=== PATIENT | male | born 1945 | race Caucasian/White ===

== ENCOUNTER 2020-06-27 14:36 | Inpatient (IN) | payer MEDICARE ==
[~2020-06-27] VITALS: Ht 182.8 cm; Wt 93.2 kg
[2020-06-27 15:17] VITALS: BP 143/74
[2020-06-27 15:38] LABS: HEMATOCRIT 43.8 % (42.0-52.0); MEAN CELL VOLUME 91.6 fl (80.0-94.0); MEAN CORPUSCULAR HGB CONC 33.8 g/dl (33.0-37.0); MEAN PLATELET VOLUME 12.1 fl (9.6-12.3); PLATELET COUNT AUTOMATED 198 10*3/uL (130-400); RED BLOOD COUNT 4.78 10*6/uL (4.50-5.90); RED CELL DISTRI WIDTH 12.2 % (0-14.5); WHITE BLOOD COUNT 25.2 10*3/uL (4.8-10.8)
[2020-06-27 15:48] LABS: ACT PARTIAL THROMBO TIME 29.6 SECONDS (20.0-32.1); INTERNATIONAL NORM RATIO 1.1 (2.0-3.5)
[2020-06-27 15:58] LABS: BASOPHILS 1 % (0-1); PLATELET SUFFICIENCY NORMAL (NORMAL); TOTAL CELLS COUNTED 100 #CELLS
[2020-06-27 16:09] LABS: ALBUMIN 2.5 gm/dl (3.1-4.5); ALKALINE PHOSPHATASE 91 U/L (45-117); BUN 25 mg/dl (7-24); CHLORIDE 96 mmol/L (98-107); CREATININE 1.36 mg/dL (0.70-1.30); LIPASE 50 U/L (73-393); POTASSIUM 3.7 mmol/L (3.5-5.1); SGOT/AST 21 IU/L (3-35); SGPT/ALT 32 U/L (12-78); SODIUM 130 mmol/L (136-145); TOTAL PROTEIN 7.5 gm/dL (6.4-8.2)
[2020-06-27 16:18] LABS: TROPONIN I < 0.015 ng/ml (<0.045)
[2020-06-27 17:14] VITALS: BP 130/75
[2020-06-27 17:59] VITALS: BP 140/73
[2020-06-27 18:48] VITALS: BP 122/80
[2020-06-27 19:14] LABS: ABG BASE EXCESS 0.3 mmol/L (-2.0-2.0); ARTERIAL BLOOD GAS PH 7.444 (7.35-7.45); ARTERIAL BLOOD GAS PO2 60.8 (80-90)
[2020-06-27 19:30] VITALS: BP 110/82
[2020-06-27 20:30] VITALS: BP 122/76; BP 154/79
[2020-06-28] VITALS: BP 131/86
[2020-06-28 06:36] LABS: HEMATOCRIT 40.1 % (42.0-52.0); MEAN CELL VOLUME 92.4 fl (80.0-94.0); MEAN CORPUSCULAR HGB CONC 32.4 g/dl (33.0-37.0); MEAN PLATELET VOLUME 12.1 fl (9.6-12.3); PLATELET COUNT AUTOMATED 176 10*3/uL (130-400); RED BLOOD COUNT 4.34 10*6/uL (4.50-5.90); RED CELL DISTRI WIDTH 12.2 % (0-14.5); WHITE BLOOD COUNT 20.9 10*3/uL (4.8-10.8)
[2020-06-28 07:09] LABS: CHLORIDE 100 mmol/L (98-107); POTASSIUM 3.8 mmol/L (3.5-5.1); SODIUM 133 mmol/L (136-145)
[2020-06-28 07:12] LABS: ATYPICAL LYMPHS 1 % (0-0); PLATELET SUFFICIENCY NORMAL (NORMAL); TOTAL CELLS COUNTED 100 #CELLS
[2020-06-28 07:13] LABS: DOHLE BODIES FEW; TOXIC GRANULATION SLIGHT
[2020-06-28 07:15] LABS: ALKALINE PHOSPHATASE 83 U/L (45-117); BUN 24 mg/dl (7-24); CREATININE 0.99 mg/dL (0.70-1.30); SGOT/AST 37 IU/L (3-35); SGPT/ALT 32 U/L (12-78); TOTAL PROTEIN 6.2 gm/dL (6.4-8.2)
[2020-06-28 08:00] VITALS: BP 104/46
[2020-06-28 08:35] VITALS: BP 128/68
[2020-06-28 12:00] VITALS: BP 123/67
[2020-06-28 16:00] VITALS: BP 124/77
[2020-06-28 20:00] VITALS: BP 123/62
[2020-06-29] VITALS: BP 119/72
[2020-06-29 06:34] LABS: HEMATOCRIT 38.9 % (42.0-52.0); MEAN CELL VOLUME 93.7 fl (80.0-94.0); MEAN CORPUSCULAR HGB 30.1 pg (27.0-31.0); MEAN CORPUSCULAR HGB CONC 32.1 g/dl (33.0-37.0); MEAN PLATELET VOLUME 12.2 fl (9.6-12.3); PLATELET COUNT AUTOMATED 168 10*3/uL (130-400); RED BLOOD COUNT 4.15 10*6/uL (4.50-5.90); RED CELL DISTRI WIDTH 12.3 % (0-14.5); WHITE BLOOD COUNT 13.2 10*3/uL (4.8-10.8)
[2020-06-29 07:05] LABS: BUN 21 mg/dl (7-24); CHLORIDE 103 mmol/L (98-107); CREATININE 0.95 mg/dL (0.70-1.30); POTASSIUM 3.6 mmol/L (3.5-5.1); SODIUM 137 mmol/L (136-145)
[2020-06-29 07:12] LABS: PLATELET SUFFICIENCY NORMAL (NORMAL); TOTAL CELLS COUNTED 100 #CELLS
[2020-06-29 08:00] VITALS: BP 114/78
[2020-06-29] MEDS ORDERED: Lantus SC ×2 (12:24→12:26)
[2020-06-29] MEDS ORDERED: ZOCOR40 MG PO (12:24)
[2020-06-29] MEDS ORDERED: LEVOFLOXACIN500 MG PO (12:24)
[2020-06-29] MEDS ORDERED: METFORMIN HCL500 M2 PO (12:24)
== END 2020-06-29 14:28 | disposition home or self-care (01) | DRG 871 ==
LOC: ED 14:36 → 5E 17:36 → EDHOLD 17:36 → 5E 18:18
PROVIDERS: Emergency Medicine; Internal Medicine; ADMIT Internal Medicine; ATTEND Internal Medicine
PROC: BD1BYZZ Fluoroscopy of Mouth/Oropharynx using Other Contrast (ICD-10-PCS; principal; 2020-06-29)
DX: A41.9 Sepsis, unspecified organism (principal); N17.0 Acute kidney failure with tubular necrosis; E43 Unspecified severe protein-calorie malnutrition; J69.0 Pneumonitis due to inhalation of food and vomit; J96.01 Acute respiratory failure with hypoxia; E87.1 Hypo-osmolality and hyponatremia; R65.20 Severe sepsis without septic shock; E87.8 Other disorders of electrolyte and fluid balance, not elsewhere classified; R73.9 Hyperglycemia, unspecified; E83.41 Hypermagnesemia; E80.6 Other disorders of bilirubin metabolism; E83.39 Other disorders of phosphorus metabolism; Z68.27 Body mass index [BMI] 27.0-27.9, adult; Z80.9 Family history of malignant neoplasm, unspecified; Z83.6 Family history of other diseases of the respiratory system

== ENCOUNTER → 2020-07-07 | Outpatient (CLI) | payer MEDICARE ==
[~2020-07-07] MED LIST: LEVOFLOXACIN500 MG PO; Lantus SC; METFORMIN HCL500 M2 PO; ZOCOR40 MG PO
== END | disposition home or self-care (01) ==
LOC: RESCLI 09:43
PROVIDERS: ATTEND Internal Medicine Nephrology
DX: E78.5 Hyperlipidemia, unspecified (principal); I10 Essential (primary) hypertension; E11.9 Type 2 diabetes mellitus without complications; J18.9 Pneumonia, unspecified organism; Z79.84 Long term (current) use of oral hypoglycemic drugs; Z79.899 Other long term (current) drug therapy; Z98.890 Other specified postprocedural states

== ENCOUNTER 2021-05-21 04:20 | Emergency (ER) | payer MEDICARE ==
[~2021-05-21] VITALS: Ht 182.8 cm; Wt 90.7 kg
[2021-05-21 06:01] LABS: BILIRUBIN Negative (Negative); BLOOD 3+ (Negative); CLARITY Cloudy (Clear); COLOR Yellow (Yellow); GLUCOSE Negative (Negative); KETONE 2+ (Negative); LEUKO ESTERASE Trace (Negative); NITRITE Negative (Negative); SPECIFIC GRAVITY 1.015 (1.001-1.030); UROBILINOGEN 0.2 E.U./dl (0.0-1.0)
[2021-05-21 06:14] LABS: BASO % 0.4 % (0.0-1.0); EOS # 0.2 10*3/uL (0.0-0.4); EOS % 1.5 % (1.0-4.0); HEMATOCRIT 47.3 % (42.0-52.0); LYMPH # 1.4 10*3/uL (1.3-4.4); LYMPH % 14.2 % (27.0-41.0); MEAN CELL VOLUME 90.4 fl (80.0-94.0); MEAN CORPUSCULAR HGB 30.2 pg (27.0-31.0); MEAN CORPUSCULAR HGB CONC 33.4 g/dl (33.0-37.0); MEAN PLATELET VOLUME 11.1 fl (9.6-12.3); MONO # 0.6 10*3/uL (0.1-1.0); MONO % 6.2 % (3.0-9.0); NEUT # 7.6 10*3/uL (2.3-7.9); NEUT % 76.6 % (47.0-73.0); PLATELET COUNT AUTOMATED 190 10*3/uL (130-400); RED BLOOD COUNT 5.23 10*6/uL (4.50-5.90); RED CELL DISTRI WIDTH 12.4 % (0-14.5)
[2021-05-21 06:27] LABS: BACTERIA TRACE; RBC 51-100 rbc/hpf (0-2)
[2021-05-21 06:28] LABS: ALKALINE PHOSPHATASE 63 U/L (45-117); BUN 13 mg/dl (7-24); CHLORIDE 104 mmol/L (98-107); CREATININE 1.09 mg/dL (0.70-1.30); POTASSIUM 4.4 mmol/L (3.5-5.1); SGOT/AST 25 IU/L (3-35); SGPT/ALT 39 U/L (12-78); SODIUM 138 mmol/L (136-145); TOTAL PROTEIN 7.6 gm/dL (6.4-8.2)
[2021-05-21] MEDS ORDERED: PERCOCET 5-3251 EACH PO ×2 (07:55→08:15)
[2021-05-21] MEDS ORDERED: ZOFRAN4 MG PO (12:58)
[2021-05-21] MEDS ORDERED: IBUPROFEN600 MG PO (12:58)
[2021-05-21] MEDS ORDERED: FLOMAX0.4 MG PO (12:58)
== END 2021-05-21 08:08 | disposition home or self-care (01) ==
LOC: ED 04:20
PROVIDERS: Emergency Medicine
DX: K57.90 Diverticulosis of intestine, part unspecified, without perforation or abscess without bleeding (principal); N13.2 Hydronephrosis with renal and ureteral calculous obstruction; K80.80 Other cholelithiasis without obstruction; Z90.89 Acquired absence of other organs

== ENCOUNTER 2021-05-21 12:31 | Emergency (ER) | payer SELFPAY ==
[~2021-05-21] VITALS: Ht 182.8 cm; Wt 90.7 kg
[~2021-05-21 12:31] MED LIST changes: +PERCOCET 5-3251 EACH PO
[2021-05-21] MEDS ORDERED: ZOFRAN4 MG PO (12:58)
[2021-05-21] MEDS ORDERED: FLOMAX0.4 MG PO (12:58)
[2021-05-21] MEDS ORDERED: IBUPROFEN600 MG PO (12:58)
== END 2021-05-21 13:43 | disposition home or self-care (01) ==
LOC: ED 12:31
DX: N20.0 Calculus of kidney (principal); Z90.89 Acquired absence of other organs

== ENCOUNTER 2022-02-01 10:55 | Inpatient (IN) | payer MEDICARE ==
[~2022-02-01] VITALS: Ht 182.9 cm; Wt 90.3 kg
[~2022-02-01 10:55] MED LIST changes: +FLOMAX0.4 MG PO; +IBUPROFEN600 MG PO; +ZOFRAN4 MG PO
[2022-02-01 11:08] VITALS: BP 147/95
[2022-02-01 12:02] LABS: BASO % 0.5 % (0.0-1.0); EOS # 0.2 10*3/uL (0.0-0.4); EOS % 1.7 % (1.0-4.0); HEMATOCRIT 47.2 % (42.0-52.0); LYMPH # 1.3 10*3/uL (1.3-4.4); LYMPH % 14.8 % (27.0-41.0); MEAN CELL VOLUME 92.7 fl (80.0-94.0); MEAN CORPUSCULAR HGB 30.6 pg (27.0-31.0); MEAN CORPUSCULAR HGB CONC 33.1 g/dl (33.0-37.0); MEAN PLATELET VOLUME 11.1 fl (9.6-12.3); MONO # 0.6 10*3/uL (0.1-1.0); MONO % 7.4 % (3.0-9.0); NEUT # 6.5 10*3/uL (2.3-7.9); NEUT % 75.1 % (47.0-73.0); PLATELET COUNT AUTOMATED 222 10*3/uL (130-400); RED BLOOD COUNT 5.09 10*6/uL (4.50-5.90); WHITE BLOOD COUNT 8.7 10*3/uL (4.8-10.8)
[2022-02-01 12:23] LABS: ALKALINE PHOSPHATASE 61 U/L (45-117); BUN 17 mg/dl (7-24); CHLORIDE 104 mmol/L (98-107); CREATININE 1.09 mg/dL (0.70-1.30); POTASSIUM 4.5 mmol/L (3.5-5.1); SGOT/AST 22 IU/L (3-35); SGPT/ALT 41 U/L (12-78); SODIUM 139 mmol/L (136-145); TOTAL PROTEIN 7.2 gm/dL (6.4-8.2)
[2022-02-01 15:26] VITALS: BP 134/76
[2022-02-01 17:40] VITALS: BP 155/80
[2022-02-01 20:00] VITALS: BP 144/74
[2022-02-02] VITALS (10 sets, daily range): BP systolic 124–152; BP diastolic 68–90
[2022-02-02 06:27] LABS: BASO % 0.5 % (0.0-1.0); EOS # 0.3 10*3/uL (0.0-0.4); EOS % 3.3 % (1.0-4.0); HEMATOCRIT 41.9 % (42.0-52.0); LYMPH # 1.7 10*3/uL (1.3-4.4); LYMPH % 22.1 % (27.0-41.0); MEAN CELL VOLUME 93.1 fl (80.0-94.0); MEAN CORPUSCULAR HGB 30.9 pg (27.0-31.0); MEAN CORPUSCULAR HGB CONC 33.2 g/dl (33.0-37.0); MEAN PLATELET VOLUME 11.1 fl (9.6-12.3); MONO # 0.7 10*3/uL (0.1-1.0); MONO % 8.9 % (3.0-9.0); NEUT # 4.9 10*3/uL (2.3-7.9); NEUT % 64.7 % (47.0-73.0); PLATELET COUNT AUTOMATED 204 10*3/uL (130-400); RED CELL DISTRI WIDTH 11.9 % (0-14.5); WHITE BLOOD COUNT 7.5 10*3/uL (4.8-10.8)
[2022-02-03] VITALS: BP 136/68
[2022-02-03 08:00] VITALS: BP 149/70
[2022-02-03 08:05] LABS: BASO % 0.5 % (0.0-1.0); EOS # 0.2 10*3/uL (0.0-0.4); EOS % 3.2 % (1.0-4.0); HEMATOCRIT 41.1 % (42.0-52.0); LYMPH # 1.3 10*3/uL (1.3-4.4); LYMPH % 17.6 % (27.0-41.0); MEAN CELL VOLUME 94.3 fl (80.0-94.0); MEAN CORPUSCULAR HGB CONC 32.8 g/dl (33.0-37.0); MEAN PLATELET VOLUME 10.8 fl (9.6-12.3); MONO # 0.6 10*3/uL (0.1-1.0); MONO % 8.3 % (3.0-9.0); NEUT # 5.2 10*3/uL (2.3-7.9); NEUT % 69.9 % (47.0-73.0); PLATELET COUNT AUTOMATED 190 10*3/uL (130-400); RED BLOOD COUNT 4.36 10*6/uL (4.50-5.90); RED CELL DISTRI WIDTH 12.1 % (0-14.5); WHITE BLOOD COUNT 7.4 10*3/uL (4.8-10.8)
[2022-02-03 08:17] LABS: BUN 12 mg/dl (7-24); CHLORIDE 107 mmol/L (98-107); POTASSIUM 4.1 mmol/L (3.5-5.1); SODIUM 141 mmol/L (136-145)
[2022-02-03 10:07] LABS: ACID FAST SPEC PROCESSING Tissue Grinding (.)
[2022-02-03 10:07] LABS: ACID FAST SPEC PROCESSING Tissue Grinding (.)
[2022-02-03 12:00] VITALS: BP 142/76
[2022-02-03 16:00] VITALS: BP 149/91
[2022-02-03 20:00] VITALS: BP 162/70
[2022-02-03] MEDS ORDERED: METRONIDAZOLE500 M1 PO (20:19)
[2022-02-03] MEDS ORDERED: CEFTRIAXONE2 G1 IV (20:19)
[2022-02-04] VITALS: BP 141/61
[2022-02-04 07:26] LABS: BASO % 0.7 % (0.0-1.0); EOS # 0.3 10*3/uL (0.0-0.4); EOS % 4.6 % (1.0-4.0); HEMATOCRIT 40.6 % (42.0-52.0); LYMPH # 1.3 10*3/uL (1.3-4.4); LYMPH % 22.2 % (27.0-41.0); MEAN CELL VOLUME 91.6 fl (80.0-94.0); MEAN CORPUSCULAR HGB 30.9 pg (27.0-31.0); MEAN CORPUSCULAR HGB CONC 33.7 g/dl (33.0-37.0); MEAN PLATELET VOLUME 10.5 fl (9.6-12.3); MONO # 0.5 10*3/uL (0.1-1.0); NEUT # 3.7 10*3/uL (2.3-7.9); PLATELET COUNT AUTOMATED 177 10*3/uL (130-400); RED BLOOD COUNT 4.43 10*6/uL (4.50-5.90); RED CELL DISTRI WIDTH 11.9 % (0-14.5); WHITE BLOOD COUNT 5.9 10*3/uL (4.8-10.8)
[2022-02-04 07:40] LABS: BUN 8 mg/dl (7-24); CHLORIDE 106 mmol/L (98-107); CREATININE 0.96 mg/dL (0.70-1.30); POTASSIUM 4.2 mmol/L (3.5-5.1); SODIUM 140 mmol/L (136-145)
[2022-02-04 08:00] VITALS: BP 143/70
[2022-02-04 12:00] VITALS: BP 148/64
[2022-02-04 16:00] VITALS: BP 142/70
[2022-02-04 20:00] VITALS: BP 154/73
[2022-02-05] VITALS: BP 151/75
[2022-02-05 06:36] LABS: BASO % 0.7 % (0.0-1.0); EOS # 0.3 10*3/uL (0.0-0.4); EOS % 6.2 % (1.0-4.0); HEMATOCRIT 41.6 % (42.0-52.0); LYMPH # 1.2 10*3/uL (1.3-4.4); LYMPH % 22.5 % (27.0-41.0); MEAN CELL VOLUME 92.4 fl (80.0-94.0); MEAN CORPUSCULAR HGB 30.9 pg (27.0-31.0); MEAN CORPUSCULAR HGB CONC 33.4 g/dl (33.0-37.0); MEAN PLATELET VOLUME 10.7 fl (9.6-12.3); MONO # 0.5 10*3/uL (0.1-1.0); MONO % 9.3 % (3.0-9.0); NEUT # 3.3 10*3/uL (2.3-7.9); NEUT % 60.8 % (47.0-73.0); PLATELET COUNT AUTOMATED 186 10*3/uL (130-400); RED CELL DISTRI WIDTH 11.9 % (0-14.5); WHITE BLOOD COUNT 5.5 10*3/uL (4.8-10.8)
[2022-02-05 06:51] LABS: BUN 10 mg/dl (7-24); CHLORIDE 103 mmol/L (98-107); CREATININE 1.04 mg/dL (0.70-1.30); POTASSIUM 3.8 mmol/L (3.5-5.1); SODIUM 140 mmol/L (136-145)
[2022-02-05 08:00] VITALS: BP 154/93
[2022-02-05 12:00] VITALS: BP 123/71
[2022-02-05] MEDS ORDERED: VITAMIN D350 MC2 PO ×2 (15:40)
[2022-02-05] MEDS ORDERED: LISINOPRIL10 M1 PO (15:40)
[2022-02-05] MEDS ORDERED: ASPIRIN ADULT L81 M2 PO ×2 (15:40)
[2022-02-05] MEDS ORDERED: Lantus SC (15:40)
[2022-02-05] MEDS ORDERED: ATORVASTATIN CA40 M1 PO (15:40)
[2022-02-05] MEDS ORDERED: METFORMIN XR500 MG PO (15:40)
[2022-02-05] MEDS ORDERED: LANTUS SOL100 UNIT/1 SC (15:43)
[2022-02-05 16:00] VITALS: BP 151/82
== END 2022-02-05 18:12 | disposition home or self-care (01) | DRG 629 ==
LOC: ED 10:55 → EDHOLD 14:00 → 4E 14:00 → EDHOLD 14:41 → 4E 16:42
PROVIDERS: Internal Medicine; Physician Assistant; Podiatrist; Student in an Organized Health Care Education/Training Program; ADMIT Internal Medicine; ATTEND Internal Medicine
PROC: 0QBN0ZZ Excision of Right Metatarsal, Open Approach (ICD-10-PCS; principal; 2022-02-02)
PROC: 0HRMXK3 Replacement of Right Foot Skin with Nonautologous Tissue Substitute, Full Thickness, External Approach (ICD-10-PCS; 2022-02-02)
PROC: 02HV33Z Insertion of Infusion Device into Superior Vena Cava, Percutaneous Approach (ICD-10-PCS; 2022-02-05)
PROC: B548ZZA Ultrasonography of Superior Vena Cava, Guidance (ICD-10-PCS; 2022-02-05)
DX: E11.69 Type 2 diabetes mellitus with other specified complication (principal); E44.0 Moderate protein-calorie malnutrition; M86.8X7 Other osteomyelitis, ankle and foot; E11.621 Type 2 diabetes mellitus with foot ulcer; E11.51 Type 2 diabetes mellitus with diabetic peripheral angiopathy without gangrene; D72.9 Disorder of white blood cells, unspecified; L08.9 Local infection of the skin and subcutaneous tissue, unspecified; E11.65 Type 2 diabetes mellitus with hyperglycemia; D72.810 Lymphocytopenia; E11.42 Type 2 diabetes mellitus with diabetic polyneuropathy; Z68.27 Body mass index [BMI] 27.0-27.9, adult; Z80.9 Family history of malignant neoplasm, unspecified; Z83.6 Family history of other diseases of the respiratory system

== ENCOUNTER → 2022-11-05 | Day surgery (SDC) | payer OTHER ==
[2022-11-02 13:51] VITALS: BP 173/84
[~2022-11-05] VITALS: Ht 182.8 cm; Wt 90.7 kg
[~2022-11-05] MED LIST changes: +ASPIRIN ADULT L81 M2 PO; +ATORVASTATIN CA40 M1 PO; +CEFTRIAXONE2 G1 IV; +COLACE100 MG PO; +HYDROCODONE-AC1 EAC1 PO; +LANTUS SOL100 UNIT/1 SC; +LISINOPRIL10 M1 PO; +METFORMIN XR500 MG PO; +METRONIDAZOLE500 M1 PO; +ONDANSETRON HYDR4 M1 PO; +TRULICITY0.75 MG/0. SC; +VITAMIN D350 MC2 PO
[2022-11-05 10:55] VITALS: BP 162/79
[2022-11-05 12:47] VITALS: BP 140/90
[2022-11-05 13:00] VITALS: BP 168/76
[2022-11-05 13:09] VITALS: BP 148/76
[2022-11-05 13:30] VITALS: BP 167/80
[2022-11-05 14:00] VITALS: BP 156/65
== END ==
LOC: SDC 11-02 14:00
PROVIDERS: ATTEND Surgery
DX: K80.10 Calculus of gallbladder with chronic cholecystitis without obstruction (principal); E11.9 Type 2 diabetes mellitus without complications; I10 Essential (primary) hypertension; Z87.891 Personal history of nicotine dependence; Z79.899 Other long term (current) drug therapy; Z90.89 Acquired absence of other organs; Z98.890 Other specified postprocedural states